=== PATIENT | male | born 1965 | race Caucasian/White ===

== ENCOUNTER 2017-09-10 11:35 | Emergency (ER) | payer MEDICAID, OTHER ==
[~2017-09-10] VITALS: Ht 170.2 cm; Wt 75.7 kg
[~2017-09-10 11:35] MED LIST: AMLO10TA2 PO; LISI40TA PO; LOPE2TAB59 PO; METO-99 PO; METO10TA2 PO; METR500T8 PO; NEOM500T PO; OXYC-302 PO; OXYC5CAP2 PO
[2017-09-10 11:37] VITALS: BP 185/146
[2017-09-10 12:19] LABS: HEMATOCRIT 49.8 % (39.2-51.8); WHITE BLOOD COUNT 8.5 x10^3/uL (3.4-10)
[2017-09-10 12:27] LABS: BLOOD UREA NITROGEN 11 mg/dL (7-18)
== END 2017-09-10 13:42 | disposition home or self-care (01) ==
LOC: ED 12:18
DX: K42.9 Umbilical hernia without obstruction or gangrene (principal); B37.89 Other sites of candidiasis
CPT/HCPCS: 36415; 80048; 85025; 93005; 99285